=== PATIENT | female | born 1970 | race Caucasian/White ===

== ENCOUNTER → 2024-04-26 | Outpatient (CLI) | payer OTHER, SELFPAY ==
--- NOTE | 2024-04-26 11:20 | EMB_PTH ---
PATIENT: JEREMY MAURER LOC: [facility]#:[id number] AGE/SX: 53/F ROOM: RE04/26/[address]: STONE Mack : 1970 BED: DIS: 04/26/2024 SPEC #: [id number] RECD: 04/26/24 15:20 STATUS: ANDREW RAH #: [id number] LYLE: 04/26/24 11:[address]: Marlen Pennington NP DEPT: SURGICAL PATHOLOGY RECD BY: Alla Hicks ENTERED: 04/27/24 08:11 SP TYPE: ENDOM BX/C SCOTT DR: Dr. Musa Florence MD Tissues: Endometrium, NOS Procedures: Surgery Specimen Level IV HEADER OPERATION: Endometrial biopsy PRE-OP DIAGNOSIS: Abnormal uterine bleeding TISSUE SUBMITTED: Endometrial tissue MICROSCOPIC DIAGNOSIS Endometrium, biopsy: Weakly proliferative to inactive endometrium. AM. 04/28/2024 MICROSCOPIC DESCRIPTION Slides are reviewed. GROSS DESCRIPTION Received is one container labeled with the patient's name and not further designated. The specimen consists of multiple irregular fragments of hemorrhagic soft tissue mixed with mucoid tissue that in aggregate measure 3.0 x 2.5 x 0.2 cm. The specimen is totally submitted in one cassette. 04/27/2024 TC:5 CPT:57004
--- NOTE | 2024-04-26 13:24 | US_ITS ---
EXAM: US PELVIS TRANSABDOMINAL AND TRANSVAGINAL, COMPLETE CLINICAL INDICATION: AUB TECHNIQUE: Transabdominal and transvaginal pelvic ultrasound was performed with grayscale and color Doppler imaging. Transvaginal imaging was used for better evaluation of the endometrium and adnexa. COMPARISON: No relevant prior studies available. FINDINGS: UTERUS/CERVIX: The uterus measures 11.5 x 9.0 x 9.0 cm. The endometrial stripe measures 0.5 cm in thickness which is abnormal for patient''s age. The endometrium is mostly distorted secondary to multiple fibroids some of which appear to be intramural and others which may be submucosal. The largest fibroid measures up to 7 cm. Anteverted. RIGHT OVARY: No significant abnormality. Blood flow is present in the right ovary. The right ovary measures 2.5 x 2.8 x 1.9 cm. LEFT OVARY: No significant abnormality. Blood flow is present in the left ovary. The left ovary measures 3.2 x 2.3 x 1.6 cm. FREE FLUID: None. BLADDER: Normal as visualized. Wall is normal thickness for degree of distention. US/Pelvic w/ Transvaginal IMPRESSION: 1. The endometrial stripe measures 0.5 cm in thickness which is abnormal for patient''s age. Please correlate with menstrual status. If patient is postmenopausal, findings could be due to endometrial hyperplasia or endometrial cancer. Consider gynecology consultation. 2. Multi fibroid uterus. Electronically Signed: Gabriel Abraham DO at 20:57 EDT ,
== END | disposition home or self-care (01) ==
PROVIDERS: PCP Family Medicine; Referring Provider Nurse Practitioner Women's Health; Visit Provider Nurse Practitioner Women's Health
DX: N93.9 Abnormal uterine and vaginal bleeding, unspecified (principal)
CPT/HCPCS: 76830; 76856; 88305

== ENCOUNTER → 2024-05-18 | Outpatient (CLI) | payer OTHER, SELFPAY ==
--- NOTE | 2024-05-18 09:03 | US_ITS ---
STUDY: ULTRASOUND BREAST - RIGHT REASON FOR EXAM: Female, 53 years old. Abnormal screening mammogram. TECHNIQUE: Axial and longitudinal images of the RIGHT breast were performed with a high resolution ultrasound transducer. # OF IMAGES: 24 COMPARISON: Diagnostic mammogram earlier today, screening mammogram 04/21/2024 FINDINGS: RIGHT Breast: Heterogeneous background echotexture. At 10:00, 5 cm from nipple, ultrasound confirms a 5 mm of the oval parallel circumscribed anechoic mass consistent with a cyst within some dense breast parenchyma consistent with fibrocystic change. Another 9 mm cyst is seen in close proximity. US/Breast Limited Unilateral IMPRESSION: Ultrasound confirms fibrocystic change. ASSESSMENT CATEGORY: BIRADS Category 2: Benign. A letter regarding these results will be sent to the patient by the facility within 30 days. Electronically Signed: Babar Wynne MD at 12:42 EDT ,
--- NOTE | 2024-05-18 09:03 | US_ITS ---
STUDY: ULTRASOUND BREAST - LEFT REASON FOR EXAM: Female, 53 years old. Abnormal screening mammogram. TECHNIQUE: Axial and longitudinal images of the LEFT breast were performed with a high resolution ultrasound transducer. # OF IMAGES: 59 COMPARISON: Diagnostic mammogram earlier today, screening mammogram 04/21/2024 FINDINGS: LEFT Breast: Heterogeneous background echotexture. At 1:00, 5 cm nipple, ultrasound confirms a 1.9 cm oval parallel circumscribed anechoic mass with posterior enhancement consistent with a cyst within some dense breast parenchyma consistent with fibrocystic change. At 1:00, 3 cm from nipple, ultrasound confirms a 1.5 cm oval parallel circumscribed anechoic mass with posterior enhancement consistent with another cyst. Other smaller cysts are seen.: US/Breast Limited Unilateral IMPRESSION: Ultrasound confirms fibrocystic change. ASSESSMENT CATEGORY: BIRADS Category 2: Benign. A letter regarding these results will be sent to the patient by the facility within 30 days. Electronically Signed: Babar Wynne MD at 12:44 EDT ,
--- NOTE | 2024-05-18 09:38 | BI_ITS ---
MAMMOGRAPHY - BILATERAL DIAGNOSTIC REASON FOR EXAM: Female, 53 years old. Abnormal mammogram PERTINENT HISTORY: Non-contributory. TECHNIQUE: Digital examination. Mediolateral oblique (MLO) and craniocaudad (CC) views of both breasts were obtained. CAD: CAD was not performed on this study. COMPARISON: 04/21/2024 FINDINGS: Breast Composition: The breasts are heterogeneously dense, which may obscure small masses. Focal compression views did not confirm masses in the upper outer quadrant of both breasts most consistent with normal breast parenchyma. No other significant abnormalities are identified. BI/DIAG MAMM W/CAD, BILAT IMPRESSION: Stable bilateral diagnostic mammogram. ASSESSMENT CATEGORY: BIRADS Category 1: Negative. A letter regarding these results will be sent to the patient by the facility within 30 days. FOLLOW UP RECOMMENDATION: Yearly follow up mammogram recommended. (A) Approximately 10% of breast cancers are not detected by mammography. A normal mammogram should not delay biopsy of a clinically suspicious abnormality. Electronically Signed: Babar Wynne MD at 10:38 EDT ,
== END | disposition home or self-care (01) ==
PROVIDERS: PCP Family Medicine; Referring Provider Nurse Practitioner Women's Health; Visit Provider Nurse Practitioner Women's Health
DX: R92.8 Other abnormal and inconclusive findings on diagnostic imaging of breast (principal)
CPT/HCPCS: 76642; 77066